=== PATIENT | female | born 1940 | race Caucasian/White ===

== ENCOUNTER → 2019-03-24 13:13 | Outpatient (CLI) | payer BC, SELFPAY ==
--- NOTE | 2019-03-24 13:15 | DI.MG.S_ITS ---
BILATERAL DIGITAL SCREENING MAMMOGRAM 3D/2D WITH CAD: 03/24/2019 CLINICAL: Routine screening. Personal history of left breast cancer. Comparison is made to exams dated: 03/11/2018 mammogram, 04/17/2017 specimen, 03/01/2017 mammogram, and 02/24/2016 mammogram - [facility]. The tissue of both breasts is heterogeneously dense. This may lower the sensitivity of mammography. Current study was also evaluated with a Computer Aided Detection (CAD) system. There are a grouped coarse calcifications in the left breast at 5 o'clock anterior depth. These are more prominent and increased in number. No other significant masses, calcifications, or other findings are seen in either breast. IMPRESSION: INCOMPLETE: NEEDS ADDITIONAL IMAGING EVALUATION The grouped coarse calcifications in the left breast are indeterminate. Mediolateral and spot magnification views are recommended. This exam was interpreted at Station ID: [id number]. NOTE: For mammograms, a report in lay terms will be sent to the patient. Approximately 15% of breast malignancies will not be visualized mammographically. In the management of a palpable breast mass, a negative mammogram must not discourage biopsy of a clinically suspicious lesion. Electronically Signed By: Pranav Mina M.D. aty/:03/24/2019 14:05:25 letter sent: Additional Imaging Needed ACR BI-RADS Category 0: Incomplete 3340F
== END ==
PROVIDERS: PCP Student in an Organized Health Care Education/Training Program; Visit Provider Student in an Organized Health Care Education/Training Program
DX: Z12.31 Encounter for screening mammogram for malignant neoplasm of breast (principal); Z85.3 Personal history of malignant neoplasm of breast
CPT/HCPCS: 77063; 77067

== ENCOUNTER → 2019-04-08 12:59 | Outpatient (CLI) | payer BC, SELFPAY ==
--- NOTE | 2019-04-08 | DI.MG.S_ITS ---
UNILATERAL LEFT DIGITAL DIAGNOSTIC MAMMOGRAM 3D/2D WITH ADDITIONAL VIEWS POST LUMPECTOMY: 04/08/2019 CLINICAL: Additional evaluation requested from prior study. Personal history of breast cancer. Comparison is made to exams dated: 03/24/2019 mammogram, 03/11/2018 mammogram, and 03/01/2017 mammogram - [facility]. The tissue of left breast is heterogeneously dense. This may lower the sensitivity of mammography. There are a grouped fine pleomorphic calcifications in the left breast at 3 o'clock middle depth. No other significant masses or calcifications are seen in the breast. IMPRESSION: SUSPICIOUS OF MALIGNANCY The grouped fine pleomorphic calcifications in the left breast are at a moderate suspicion for malignancy. A stereotactic biopsy is recommended. This exam was interpreted at Station ID: [id number]. NOTE: For mammograms, a report in lay terms will be sent to the patient. Approximately 15% of breast malignancies will not be visualized mammographically. In the management of a palpable breast mass, a negative mammogram must not discourage biopsy of a clinically suspicious lesion. Electronically Signed By: Dony rios/:04/08/2019 14:13:04 letter sent: Biopsy Required ACR BI-RADS Category 4c: Suspicious abnormality - moderate concern but not classic for malignancy 3344F
== END ==
PROVIDERS: PCP Student in an Organized Health Care Education/Training Program; Visit Provider Student in an Organized Health Care Education/Training Program
DX: R92.1 Mammographic calcification found on diagnostic imaging of breast (principal); Z85.3 Personal history of malignant neoplasm of breast
CPT/HCPCS: 77065; G0279

== ENCOUNTER → 2019-05-12 13:07 | Outpatient (CLI) | payer BC, SELFPAY | PROVIDERS: PCP Student in an Organized Health Care Education/Training Program; Visit Provider Student in an Organized Health Care Education/Training Program | DX: M85.88 Other specified disorders of bone density and structure, other site (principal); Z78.0 Asymptomatic menopausal state; E05.00 Thyrotoxicosis with diffuse goiter without thyrotoxic crisis or storm; Z85.3 Personal history of malignant neoplasm of breast; Z82.62 Family history of osteoporosis | CPT/HCPCS: 77080 ==

== ENCOUNTER → 2019-05-22 11:28 | Outpatient (CLI) | payer BC, SELFPAY ==
[2019-05-24 18:02] LABS: Fecal Immunochemical Test NOT DETECTED (NOT DETECTED)
== END ==
PROVIDERS: PCP Student in an Organized Health Care Education/Training Program; Visit Provider Student in an Organized Health Care Education/Training Program
DX: Z12.11 Encounter for screening for malignant neoplasm of colon (principal)
CPT/HCPCS: 82274

== ENCOUNTER → 2020-04-30 14:00 | Outpatient (CLI) | payer BC, SELFPAY ==
--- NOTE | 2020-04-30 | DI.MG.S_ITS ---
BILATERAL DIGITAL SCREENING MAMMOGRAM 3D/2D WITH CAD POST LUMPECTOMY: 04/30/2020 CLINICAL: Routine screening. Breast cancer. Comparison is made to exams dated: 04/08/2019 mammogram, 03/24/2019 mammogram, 03/11/2018 mammogram, and 03/01/2017 mammogram - [facility]. The tissue of both breasts is heterogeneously dense. This may lower the sensitivity of mammography. Current study was also evaluated with a Computer Aided Detection (CAD) system. There are benign vascular calcifications in both breasts. There also are benign post operative findings in the left breast. No significant masses, calcifications, or other findings are seen in either breast. There has been no significant interval change. IMPRESSION: There is no mammographic evidence of malignancy. A 1 year screening mammogram is recommended. This exam was interpreted at Station ID: [id number]. NOTE: For mammograms, a report in lay terms will be sent to the patient. Approximately 15% of breast malignancies will not be visualized mammographically. In the management of a palpable breast mass, a negative mammogram must not discourage biopsy of a clinically suspicious lesion. Electronically Signed By: Debo higgins/sneha:04/30/2020 14:55:50 letter sent: Normal Exam ACR BI-RADS Category 2: Benign Finding(s) 3342F
== END ==
PROVIDERS: PCP Student in an Organized Health Care Education/Training Program; Referring Provider Student in an Organized Health Care Education/Training Program; Visit Provider Student in an Organized Health Care Education/Training Program
DX: Z12.31 Encounter for screening mammogram for malignant neoplasm of breast (principal); Z85.3 Personal history of malignant neoplasm of breast
CPT/HCPCS: 77063; 77067

== ENCOUNTER → 2021-05-16 14:09 | Outpatient (CLI) | payer BC, SELFPAY ==
--- NOTE | 2021-05-16 | DI.MG.S_ITS ---
BILATERAL DIGITAL SCREENING MAMMOGRAM 3D/2D WITH CAD: 05/16/2021 CLINICAL: Routine screening. Breast cancer. Comparison is made to exams dated: 04/30/2020 mammogram, 04/08/2019 mammogram, 03/24/2019 mammogram, and 03/11/2018 mammogram - [facility]. The tissue of both breasts is heterogeneously dense. This may lower the sensitivity of mammography. Current study was also evaluated with a Computer Aided Detection (CAD) system. There are benign calcifications in both breasts. There also are benign vascular calcifications in both breasts. Additionally, there are benign post operative findings in the left breast. No significant masses, calcifications, or other findings are seen in either breast. There has been no significant interval change. IMPRESSION: BENIGN There is no mammographic evidence of malignancy. A 1 year screening mammogram is recommended. This exam was interpreted at Station ID: [id number]. NOTE: For mammograms, a report in lay terms will be sent to the patient. Approximately 15% of breast malignancies will not be visualized mammographically. In the management of a palpable breast mass, a negative mammogram must not discourage biopsy of a clinically suspicious lesion. Electronically Signed By: Dony rios/sneha:05/16/2021 14:46:03 letter sent: Normal Exam ACR BI-RADS Category 2: Benign Finding(s) 3342F
== END ==
PROVIDERS: PCP Student in an Organized Health Care Education/Training Program; Referring Provider Student in an Organized Health Care Education/Training Program; Visit Provider Student in an Organized Health Care Education/Training Program
DX: Z12.31 Encounter for screening mammogram for malignant neoplasm of breast (principal); Z85.3 Personal history of malignant neoplasm of breast
CPT/HCPCS: 77063; 77067

== ENCOUNTER → 2021-07-07 11:42 | Outpatient (CLI) | payer BC, SELFPAY ==
[2021-07-07 12:38] LABS: Add Manual Diff / Slide Review NO; Basophils Absolute Auto 100 /uL (0-100); Eosinophils Absolute Auto 100 /uL (0-450); Eosinophils Percent Auto 1.2 % (2-4); Hematocrit 42.4 % (36-46); Hemoglobin 14.1 g/dL (12.0-16.0); Lymphocytes Absolute Auto 1500 /uL (1100-4500); Lymphocytes Percent Auto 28.5 % (25-40); Mean Corpuscular HGB Conc 33.3 % (30-36); Mean Corpuscular Hemoglobin 31.4 PG (26-34); Mean Corpuscular Volume 94.1 fL (80-100); Monocytes Absolute Auto 500 /uL (0-900); Monocytes Percent Auto 9.5 % (3-14); Neutrophils Absolute Auto 3200 /uL (1500-7000); Neutrophils Percent Auto 59.8 % (50-75); Platelet Count 177 X10^3/uL (150-400); Red Blood Cell Count 4.51 X10^6/uL (4.0-5.2); Red Cell Distribution Width 13.8 % (11.6-14.8); White Blood Cell Count 5.4 X10^3/uL (4.5-11.0)
[2021-07-07 12:41] LABS: Hemoglobin A1C% w Est Avg Glu 5.6 % (4.0-6.0)
[2021-07-07 12:49] LABS: BUN Creatinine Ratio 31.1 (6-22); Blood Urea Nitrogen 19 mg/dL (7-17); Calcium 9.5 mg/dL (8.4-10.2); Carbon Dioxide 26 mmol/L (22-32); Chloride 105 mmol/L (98-107); Estimated Glomerular Filt Rate > 60.0 mL/min (>60); Glucose 96 mg/dL (80-110); HEMOLYSIS < 15 (0-50); Potassium 4.1 mmol/L (3.4-5.1); Sodium 137 mmol/L (137-145)
[2021-07-07 13:40] LABS: Thyroid Stimulating Hormone 1.14 uIU/mL (0.47-4.68)
== END ==
PROVIDERS: PCP Student in an Organized Health Care Education/Training Program; Referring Provider Orthopaedic Surgery; Visit Provider Orthopaedic Surgery
DX: E03.9 Hypothyroidism, unspecified (principal); Z01.818 Encounter for other preprocedural examination; M25.562 Pain in left knee; R73.9 Hyperglycemia, unspecified; Z01.812 Encounter for preprocedural laboratory examination
CPT/HCPCS: 36415; 80048; 83036; 84439; 84443; 85025; 93005

== ENCOUNTER → 2021-07-23 11:55 | Outpatient (CLI) | payer BC, SELFPAY ==
[2021-07-23 12:26] LABS: COVID19 -Nasal RAPID Negative (Negative)
== END ==
PROVIDERS: PCP Student in an Organized Health Care Education/Training Program; Visit Provider Nurse Practitioner Family
DX: Z20.822 Contact with and (suspected) exposure to COVID-19 (principal)
CPT/HCPCS: 87635

== ENCOUNTER 2021-07-25 10:44 | Observation (INO) | payer BC, SELFPAY ==
[2021-07-18 13:55] VITALS: BMI 25.4
[2021-07-25] VITALS (10 sets, daily range): BP systolic 113–142; BP diastolic 40–75; PULSE 58–77; RESP 12–16; TEMP 35.6–36.9; O2SAT 92–98; BMI 25.4
[2021-07-25] MEDS: ACETAMINOPHEN 325 MG TABLET 975 MG PO (11:28)
[2021-07-25] MEDS: CELECOXIB 200 MG CAPSULE PO (11:30)
[2021-07-25] MEDS: PREGABALIN 75 MG CAPSULE PO (11:31)
[2021-07-25] MEDS: LACTATED RINGERS 1,000 ML 42 ML IV ×2 (11:43→14:45)
--- NOTE | 2021-07-25 12:15 | DI.RAD.S_ITS ---
PROCEDURE: XR KNEE RT 1TO2V INDICATIONS: RT TOTAL KNEE TECHNIQUE: 2 view(s) of the knee acquired. COMPARISON: [facility], [place], XR KNEE ARTHRITIC SERIES , 04/07/2021, 13:48. FINDINGS: Bones: Patient is status post knee joint arthroplasty. Hardware components are in expected positions. Visualized bony structures are intact. Soft tissues: Overlying postoperative changes are noted. IMPRESSION: Expected immediate postoperative appearance of right TKA. Dictated by: Guero Brooks Lucio Interpreted: Caryl Jin MD on 07/25/2021 at 15:52 Transcribed by: [email or web address] on 07/25/2021 at 15:53 Approved by: Caryl Jin M.D. on 07/25/2021 at 16:02
--- NOTE | 2021-07-25 12:35 | PM.PREOP ---
Pre-operative Note COVID-19 COVID-19 status: Negative Result date/Date tested (Pos, Neg/Pending): 07/23/21 Interval Note History & Physical reviewed/Exam performed by Physician: Yes Changes to H&P: No
[2021-07-25] MEDS: BUPIVACAINE 0.25% (PF) VIAL 30 ML INJ (14:10)
[2021-07-25] MEDS: EPINEPHrine 1 MG/ML 0.15 MG INJ (14:12)
[2021-07-25] MEDS: MORPHINE 4 MG/ML INJ INJ (14:13)
[2021-07-25] MEDS: BUPIVACAINE LIPOSOME 266 MG/20 ML VIAL INJ (14:14)
[2021-07-25] MEDS: TRANEXAMIC ACID 1,000 MG VIAL 1000 MG INJ ×2 (14:14→14:48)
--- NOTE | 2021-07-25 14:20 | SUR.OPER ---
Supine on padded OR bed. Pillow under head, arms secured on padded armboards <90 degree abduction. Safety belt across torso. Non-operative leg secured with tape over blanket over lower leg. Operative leg secured in DeMayo/Daniel/Nathe positioner. Foam padded brace at thigh of operative leg.
--- NOTE | 2021-07-25 15:14 | PM.OP.1 ---
Operative Date/Time/Diagnoses Date of procedure: 07/25/21 Time of procedure: 15:14 Pre-op diagnosis: Right knee osteoarthritis Post-op diagnosis: same Procedure & Clinicians Procedure: Right total knee replacement Same procedure as scheduled: Yes Indications: The patient has had progressively worsening right knee pain with radiographic changes consistent with arthritis. Non-operative management has failed and the patient has requested total knee replacement. The risks, benefits and alternatives to surgery were discussed with the patient prior to proceeding. Risks discussed included, but were not limited to, failure to relieve pain, stiffness, infection, nerve damage, deep venous thrombosis, pulmonary embolism, stroke, coma, heart attack, permanent paralysis and , as well as the potential need for eventual revision of the prosthetic. Surgeon: Yuval Abdalla [employer] Hemmer: Dale Mcgraw Click Yes if Unassisted: No Anesthesia Type: General and Local Operative Notes Findings: Severe medial and patellofemoral osteoarthritis Closure Type: primary Specimen(s): none sent Prosthetic devices, grafts, tissues, transplants, or devices: Implants used in this procedure were manufactured by the [employer] and [employer] and included the BCS II Journey total knee replacement with a size 5 right cobalt chromium femoral component, a size 3 right non porous tibial base plate, 9 mm cross-linked polyethylene insert and a size 32 oval Paula II patella. Applied: implant(s) Estimated Blood Loss (mL): 25 Blood products transfused: none Tourniquet time (min): 52 Procedure in detail: The patient was seen in the pre-operative area, where the patient identified the right knee as the operative site and this was marked with my initials. The patient received pre-operative antibiotics, and was taken to the operating room and placed on the operative table in the supine position. After satisfactory anesthesia, a signal timer out was performed. The right leg was encircled with a tourniquet about the proximal thigh, and the leg was prepared from the toes to the tourniquet with ChloroPrep in the usual fashion and draped through sterile drapes. The leg was elevated and exsanguinated with Eschmark bandage and the tourniquet inflated to 250 mmHg pressure. The knee was approached through an approximately 16 cm incision centered over the patella and carried into the knee through a medial parapatellar arthrotomy. The anterior osteophytes and soft tissues were removed. The rotational landmarks of Haskell's line and the transepicondylar axis were marked on the femur with electrocautery, and intramedullary guide holes for the femur and tibia were created. The distal femoral cut was made in 6 degrees of valgus using the intramedullary guide at the +1 mm setting due to a pre-existing flexion contracture. The proximal tibial cut was then made using the intramedullary guide, taking 9 mm of bone off the less involved side. The extension gap was checked and the rotation of the femoral component confirmed with the gap balancing system. The anterior, posterior and chamfer cuts were then made. The posterior osteophytes and soft tissues were then removed. The posterior capsule was injected with part of a mixture of 60 ml 0.25% Marcaine mixed with 20 ml Exparel and 4 mg of morphine for post-operative pain control. The remainder of this mixture was injected into the capsule and subcutaneous tissues during cement curing. The tibia was prepared with the rotation set by an extra medullary guide. Trial tibial and femoral components were then placed and the intercondylar notch cut through the femoral trial. Range of motion was 0-140 degrees, with good stability throughout the range. The patella was then cut to accommodate the patellar prosthetic. There was no need for a lateral release. The trials were then removed, and the femoral hole plugged with a bone plug. The bone was prepared with pulsatile lavage, and dried with a sponge. Cement was applied and the final prosthetics placed. Excess cement was removed during and after cement curing. After confirming there was no extruded cement posteriorly, the final tibial insert was placed. The knee was copiously irrigated and the tourniquet deflated. Hemostasis was obtained. The capsule was closed with interrupted # 2 polyester suture. The subcutaneous layer was closed with 3-0 Vicryl, and the skin with a running 3-0 V-Lock suture and Dermabond. An Aquacel Ag dressing was applied and the patient was taken to recovery having tolerated the procedure well. Complications: none Post-operative Condition: stable Disposition: PACU Plan for aftercare: The patient will be maintained on a standard total knee replacement protocol with weight bearing as tolerated. The patient will receive aspirin and sequential compression devices for DVT prophylaxis. The patient will be discharged home when safe for the home environment.
[2021-07-25] MEDS: OXYCODONE/ACETAMINOPHEN 5/325 TABLET 1 TAB PO (15:50)
[2021-07-25] MEDS: METOCLOPRAMIDE 10 MG/2 ML INJ IV (16:42)
[2021-07-25] MEDS: LACTATED RINGERS 1,000 ML 100 ML IV (16:42)
[2021-07-25] MEDS: ONDANSETRON 4 MG/2 ML INJ IV (20:41)
[2021-07-26] VITALS (8 sets, daily range): BP systolic 118–142; BP diastolic 48–60; PULSE 60–68; RESP 16–18; TEMP 36.1–37; O2SAT 92–98
[2021-07-26] MEDS: LACTATED RINGERS 1,000 ML 100 ML IV (02:22)
[2021-07-26] MEDS: LEVOTHYROXINE 88 MCG TABLET PO (06:10)
[2021-07-26 06:18] LABS: Hematocrit 38.2 % (36-46); Hemoglobin 12.5 g/dL (12.0-16.0)
[2021-07-26] MEDS: ACETAMINOPHEN 325 MG TABLET 650 MG PO ×3 (06:31→20:56)
--- NOTE | 2021-07-26 07:52 | P.DS_ITS ---
History of Present Illness History of Present Illness Date Patient Seen: 07/26/21 Time Patient Seen: 07:52 Chief complaint: OPB Narrative: The history and physical is contained in the chart previously completed note. Please refer to that note for this information. Discharge Providers Provider Date of admission: July 25, 2021 Discharge Date: 07/26/21 Primary care physician: Bebeto Neal MD Consults: 07/25/21 16:02 Consult to Discharge Planning Routine Comment: Consult to Physical Therapy Evaluate & Treat Comment: Physician Instructions: postop TKA protocol Discharge provider: Yuval Abdalla MD Summary Hospital Course Discharge Diagnosis: Osteoarthritis of the right knee Hospital Course: Patient was admitted to the hospital and taken directly to the operating room on July 25, 2021. She underwent a right total knee replacement without complications. On postoperative day 1 her pain control was satisfactory. She had not yet ambulated with physical therapy. Status at Discharge Cognitive/behavioral status at discharge: at baseline, oriented Functional status at discharge: uses cane/walker Overall status at discharge: patient is progressing back to baseline Time Spent with Patient Time spent: Less than 30 minutes Exam Vital Signs (past 8 hours): - 07/26/21 00:24 07/26/21 03:31 07/26/21 07:05 Temperature 96.9 F L 98.6 F Pulse Rate 60 62 Respiratory Rate 16 16 Blood Pressure 130/52 L 118/60 Pulse Oximetry 98 98 98 Oxygen Delivery Method Nasal Cannula Oxygen Flow Rate 2 Narrative Exam Narrative: Right knee wound is dressed with no drainage on the bandage. Calf is soft. Light touch and motion are intact in the right lower extremity. Objective Labs Result Diagrams: 07/26/21 06:01 Labs: Laboratory Results - last 24 hr 07/26/21 06:01 Hgb 12.5 Hct 38.2 [facility] Medical History (Updated 07/18/21 @ 14:22 by Alison Thakur RN) Breast cancer, left (2017) Chicken pox (~1946) Deviated septum Graves disease (~1985) Hx of thyroid irradiation Measles (~1946) Nephritis Osteoarthritis (~1998) Osteopenia Recurrent sinusitis (~1989) Seasonal allergies (~1989) Tinnitus (~2009) Vertigo (~1966) Surgical History (Updated 07/18/21 @ 14:20 by Alison Thakur RN) Anesthesia Cataracts, bilateral History of lumpectomy of left breast (2016) Status post appendectomy (~2012) Status post vaginal hysterectomy (11/29/15) Family History (Updated 04/15/19 @ 21:52 by Nina Aguilera) Father Heart disease Mother Hypertension Grandmother Hypertension Stroke Grandfather Cancer Social History household members: spouse Smoking Status: Never smoker alcohol intake: current Discharge Assessment & Plan Assessment and Plan Assessment: Stable postoperative day 1 status post right total knee replacement. We anticipate she will be able to go home with the care of her and daughter to live on 1 story of her two-story home after physical therapy this morning. If therapy does not go well they will contact me and we will admit her as an inpatient. Plan of Treatment: Discharge today if passes physical therapy. Follow-up will be at my office in 2 weeks. A prescription has been sent into the pharmacy for oxycodone for pain relief. She has also been instructed in the use of Tylenol for pain control and the use of low-dose aspirin for DVT prophylaxis. Discharge Plan Discharge Plan Patient Disposition: Home Discharge orders & Medications Discharge Orders: Discharge (Order); Ordered 07/26/21 Ordered By: Yuval Abdalla Prescriptions: New acetaminophen 325 mg Tablet 650 mg PO TID 30 Days Qty: 180 RF: 0 aspirin 81 mg Tablet,Delayed Release (Dr/Ec) 81 mg PO BID 42 Days Qty: 84 RF: 0 oxycodone 5 mg Tablet 5 mg PO Q4H PRN (Reason: Pain, Moderate (4-6)) Qty: 40 RF: 0 Continued ascorbic acid (vitamin C) 500 MG tablet 500 mg PO QDAY Qty: 0 RF: 0 cholecalciferol (vitamin D3) [Vitamin D3] 50 mcg (2,000 unit) Capsule 50 mcg PO DAILY Qty: 0 RF: 0 beta carotene 25,000 unit Capsule 25,000 unit PO DAILY Qty: 0 RF: 0 calcium carbonate-vitamin D3 500 mg(1,250mg) -125 unit Tablet 2 tab PO QPM Qty: 0 RF: 0 turmeric root extract 500 mg Capsule 1,000 mg PO BID Qty: 0 RF: 0 levothyroxine [Synthroid] 88 mcg tablet 88 mcg PO DAILY Qty: 90 RF: 0 vitamin K2 100 mcg Capsule 200 mcg PO DAILY RF: 0 krill oil 500 mg Capsule 500 mg PO DAILY RF: 0 Follow up/Referrals: Bebeto Neal MD [Primary Care Provider] - Yuval Abdalla MD [Physician] - 2 Weeks Diet/Activity/Treatments Diet: Diet as Tolerated and Regular Activity: You may bear weight as tolerated on your right leg. Cold/Heat Therapy: Apply ice for 15 minutes every hour as needed to the right knee for pain control. Skin/Wound/Dressing Care Report to your healthcare provider any signs of infection, such as:: chills, fever, night sweats, increased pain, unusual drainage and unusual redness Dressing: You may remove the Billy wrap 3 days after surgery and shower normally with the deeper dressing in place. Leave the deeper dressing in place until follow-up in my office. If the central strip of the deeper dressing becomes saturated with either water or blood, please call the office to have it evaluated. Visit Report/Discharge Packet Instructions: DI for Knee Replacement Stand Alone Forms: Surgery Discharge Discharge Data Primary Care Provider: Bebeto Neal Attending Provider: Yuval Abdalla Quality VTE Deep Vein Thrombosis/Pulmonary Embolism Present on Admission: No
[2021-07-26] MEDS: ASPIRIN EC 81 MG TABLET PO ×2 (08:31→20:56)
[2021-07-26] MEDS: DOCUSATE 100 MG CAPSULE PO ×2 (08:31→20:56)
[2021-07-26] MEDS: ASCORBIC ACID 500 MG TABLET PO (08:31)
[2021-07-26] MEDS: OXYCODONE IR 10 MG TABLET PO (08:31)
[2021-07-26] MEDS: ONDANSETRON 4 MG/2 ML INJ IV ×2 (08:31→18:01)
[2021-07-26] MEDS: CHOLECALCIFEROL (VITAMIN D3) 1,000 UNIT TABLET 2000 UNIT PO (08:31)
--- NOTE | 2021-07-26 09:20 | PT.IIE ---
Current Diagnoses Unilateral primary osteoarthritis, right knee (07/25/21) Surgery Performed Operation Date: 07/25/21 12:15 Actual Procedures p Total Knee Arthroplasty(Right) - Yuval Abdalla MD Surgical History (Last Updated 07/18/21 @ 14:20 by Alison Thakur, RN) Anesthesia Cataracts, bilateral Status post appendectomy (~2012) Status post vaginal hysterectomy (11/29/15) Medical History (Last Updated 07/18/21 @ 14:22 by Alison Thakur RN) Breast cancer, left (2016) Chicken pox (~1945) Deviated septum Graves disease (~1985) Hx of thyroid irradiation Measles (~1946) Nephritis Osteoarthritis (~1998) Osteopenia Recurrent sinusitis (~1989) Seasonal allergies (~1989) Tinnitus (~2009) Vertigo (~1966) Physical Therapy Inpatient Evaluation/Re-Eval M1 PT/OT-IP Prior Functional Status Start: 07/26/21 11:50 Freq: NEEDED Status: Active Protocol: Document 07/26/21 09:20 AB (Rec: 07/26/21 12:[email or web address] Medical Review Prior Functional Status Medical History Reviewed Yes Communication able to make needs known Mobility and Gait pt stated that she is independent with all mobilities and ambulation without AD Social History Household Members spouse Living Arrangements House Number of Floors (Floors) Two Floors Number of Stairs To Enter/Railing? pt stays on main level of the house 1 step to enter Home Environment High Toilet,Walk in Shower Home Equipment Front Wheel Walker,Quad Cane, Straight Cane,Hand Held Shower Employment Status Retired M2 PT-IP Current Condition Start: 07/26/21 11:50 Freq: NEEDED Status: Active Protocol: Document 07/26/21 09:20 AB (Rec: 07/26/21 12:05 AB [email or web address]) Physical Therapy Current Condition Current Condition Evaluation Date 07/26/21 Treatment Diagnosis s/p R TKA; difficulty in walking Onset Date 07/25/21 Weight Bearing Status Weight Bearing Status Weight Bear as Tolerated Allowed Weight Bearing Amount (enter % RLE WBAT or #) (%) M3 PT-IP Subjective Start: 07/26/21 11:50 Freq: NEEDED Status: Active Protocol: Document 07/26/21 09:20 AB (Rec: 07/26/21 12:05 AB [email or web address]) Subjective Physical Therapy Visit Type Type Initial Evaluation Visit Start Time 09:20 Visit Stop Time 10:11 Total Visit Minutes 51 Number of HEAT TREAT FURNACE OPERATOR Visits 0 Physical Therapy Visit Comments Patient Comments agreeable to do PT; c/o nausea Therapy Pain Assessment Pain When Pain Assessed At Rest Pain Present Pain Present Pain Reported Location Right Knee Intensity 5 Scale Used Numeric (0 - 10) Pain Management Techniques Apply Cold,Distraction, Modification of Treatment,Re- positioning,Timing of Activity with Medications M4 PT-IP Mobility and Gait Start: 07/26/21 11:50 Freq: NEEDED Status: Active Protocol: Document 07/26/21 09:20 AB (Rec: 07/26/21 12:05 [id number]) PT-Bed Mobility Assessment Supine to Sit Supine to Sit Standby Assistance PT-Transfer Assessment Sit to and From Stand Sit to and from Stand Moderate Assistance,1 Person Assistance,Use of Upper Extremities Equipment Transfer Assistive Device Gait Belt,Front Wheeled Walker Orthotic/Prosthetic Devices or Brace: No Transfers Transfer Destination Chair,Bedside Commode Transfer Technique Stand Step Pivot Transfer Ability Level of Assist Moderate Assistance,1 Person Assistance,Use of Upper Extremities Comments Mobility Comments spouse in room with pt. pt requesting to use the toilet. BP: 133/55 . pt completed supine to sit SBA. able to sit on EOB SBA. c/o nausea. BP in sittin/52. completed sit to stand mod A and mod cues and completed step transfer to bedside commode using FWW mod A and cues. pt continues to c/o nausea. (+) emesis. nurse in room. pt completed sit to stand from bedside commode mod A and cues and min A for standing balance using fWW while nurse assisted with hygiene care. pt was able to pull brief up min A. pt able to take steps using FWW to the chair min to mod A and cues. Caregiver training initiated. educated spouse on how to use safety belt and how to assist pt. spouse was able to put safety belt on. assisted pt with sit to stand and ambulated in room using FWW min to mod A and cues. pt agreed to sit up on chair but refused further activity due to c/o nausea. positioned pt on chair. call light and table placed within reach. caregiver training set up for this afternoon at 1pm. Gait Assessment Gait Gait Assistance Required: Minimum Assistance,Moderate Assistance,1 Person Assist Distance (Feet) 25 Able to Maintain Weight Bearing Status Yes During Gait Assistive Devices Assistive Device Gait Belt,Front Wheeled Walker Orthotic/Prosthetic Devices or Brace: No Gait Deviations General Gait Pattern Antalgic,Decreased Stride Length,Decreased Feet Clearance,Step-to Gait Factors Limiting Gait Function Factors Limiting Gait Function Decreased Activity Tolerance, Decreased Strength,Difficulty Following Directions,Limited Range of Motion,Pain,Poor Balance,Poor Safety Awareness PT-Balance Assessment Sitting Balance and Reactions Static Sitting Balance Ability Good Dynamic Sitting Balance Ability Good Standing Balance and Reactions Static Standing Balance Ability Fair Dynamic Standing Balance Ability Fair Device Used FWW M5 PT-IP Objective Assessments Start: 07/26/21 11:50 Freq: NEEDED Status: Active Protocol: Document 07/26/21 09:20 AB (Rec: 07/26/21 12:05 [email or web address]) Orientation Orientation/Cognition Level of Alertness Alert Orientation Name,Place,Situation Language Function Ability No Deficits Noted Safety Awareness Decreased Safety Awareness Memory Description No Deficits Noted Gross Range of Motion Lower Extremity ROM Impairments R knee flexion: ~ 70 deg PROM R knee extension: ~ 25 deg less to 0 Strength Lower Extremity Strength Assessment Right Impaired Hip 3+/5 Knee 3+/5 Sensation Assessment Sensation Gross Sensation WNL Muscle Tone Muscle Tone WNL Yes M6 PT-IP Treatment Start: 07/26/21 11:50 Freq: NEEDED Status: Active Protocol: Document 07/26/21 09:20 AB (Rec: 07/26/21 12:05 [email or web address]) Physical Therapy Treatment Education Education Provided Precautions,Weight Bearing Status,Post-Op Packet,Safety M7 PT-IP Assessment and Plan Start: 07/26/21 11:50 Freq: NEEDED Status: Active Protocol: Document 07/26/21 09:20 AB (Rec: 07/26/21 12:05 [email or web address]) PT Summary Assessment and Plan Potential Rehabilitation Potential Good Status of Condition at Evaluation Evolving Summary Impairments Pain,ROM,Strength,Balance, Coordination,Sensation,Tone, Cognition,Bed Mobility, Transfers,Gait,Activity Tolerance Assessment Summary caregiver training conducted but further training is needed . pt unable to tolerate much activity this morning due to c /o nausea with (+) emesis. will continue to assess progress. pt plans to go home and spouse to assist her. Goals Bed Mobility Goal Independent Transfer Goal Independent,Front Wheeled Walker Gait Goal Independent,Front Wheel Walker Gait Distance 150 Other Goals up/down 1 step using FWW SBA Days to Meet Goals 5 Frequency of Treatment Frequency Of Treatment Twice a Day Treatment Plan Physical Therapy Treatment Plan Bed Mobility Training,Transfer Training,Gait Training, Therapeutic Exercise,Balance Retraining,Post Op Education, Discharge Planning,Hot or Cold Pack,Neuromuscular Re-ed, Coordination Retraining,Manual Therapy Other Recommendations and Next Treatment caregiver training 07/26/21 at [facility] 1 pm Precautions Other Precautions RLE WBAT Recommendations To Nursing Amount of Assist Needed 1 Person Assist Discharge Recommendations PT Discharge Recommendations Home with Assistance, Outpatient PT Transportation Needs at Discharge Private Vehicle
--- NOTE | 2021-07-26 10:13 | PC.NURSE ---
Pt up with PT for the first time. Pt c/o nausea. Had medicated with Zofran around breakfast time. Pt with emesis 400 ml. C/O dizziness. BP stable. No hypotension when assessed. May be due to pain meds. Will continue to monitor. Pt not discharging this morning. Still needs to do a step with PT and also needs to demonstrate that she can keep her food down without vomiting.
--- NOTE | 2021-07-26 11:40 | PC.NURSE ---
Dr Abdalla saw patient this morning. She worked with PT. Pending PT clearance for discharge. Also, pt has had nausea/vomiting and unable to keep her breakfast down despite medicating her with Zofran prior to breakfast.
[2021-07-26] MEDS: METOCLOPRAMIDE 10 MG/2 ML INJ IV (12:04)
--- NOTE | 2021-07-26 13:00 | PT.IPTN ---
Current Diagnoses Unilateral primary osteoarthritis, right knee (07/25/21) Surgery Performed Operation Date: 07/25/21 12:15 Actual Procedures p Total Knee Arthroplasty(Right) - Yuval Abdalla MD Physical Therapy Treatment Note M2 PT-IP Current Condition Start: 07/26/21 11:50 Freq: NEEDED Status: Active Protocol: Document 07/26/21 09:20 AB (Rec: 07/26/21 12:05 AB [email or web address]) Physical Therapy Current Condition Current Condition Evaluation Date 07/26/21 Treatment Diagnosis s/p R TKA; difficulty in walking Onset Date 07/25/21 Weight Bearing Status Weight Bearing Status Weight Bear as Tolerated Allowed Weight Bearing Amount (enter % RLE WBAT or #) (%) M3 PT-IP Subjective Start: 07/26/21 11:50 Freq: NEEDED Status: Active Protocol: Document 07/26/21 13:00 AB (Rec: 07/26/21 15:12 AB [email or web address]) Subjective Physical Therapy Visit Type Type Treatment Note Visit Start Time 13:00 Visit Stop Time 13:27 Total Visit Minutes 27 Number of GRADUATE INTERN Visits 0 Physical Therapy Visit Comments Patient Comments agreeable to do PT Therapy Pain Assessment Pain When Pain Assessed At Rest Pain Present Pain Present Pain Reported Location Right Knee Intensity 6 Scale Used Numeric (0 - 10) Pain Behaviors Guarding,Holding Area Pain Management Techniques Distraction,Modification of Treatment,Re-positioning, Timing of Activity with Medications M4 PT-IP Mobility and Gait Start: 07/26/21 11:50 Freq: NEEDED Status: Active Protocol: Document 07/26/21 13:00 AB (Rec: 07/26/21 15:12 AB [email or web address]) PT-Bed Mobility Assessment Sit to Supine Sit to Supine Standby Assistance PT-Transfer Assessment Sit to and From Stand Sit to and from Stand Contact Guard Assistance,1 Person Assistance,Use of Upper Extremities Equipment Transfer Assistive Device Gait Belt,Front Wheeled Walker Orthotic/Prosthetic Devices or Brace: No Transfers Transfer Destination Bed Transfer Technique Stand Step Pivot Transfer Ability Level of Assist Contact Guard Assistance, Minimal Assistance,1 Person Assistance,Use of Upper Extremities Comments Mobility Comments caregiver training conducted. spouse was able to put safety belt on and assisted pt with ambulation in room using FWW. educated pt and spouse regarding stair climbing. pt ambulated with spouse assisting using FWW CGA to min A to platform step. PT assisted pt on first attempt with up/down platform step using FWW and pt completed with min A and cues. spouse assisted pt on 2nd attempt and completed safely. pt ambulate to the room with spouse assisting and cueing. pt sat on chair. pt requested to go back to bed. spouse assisted pt with transfer to bed using FWW. pt completed sit to supine SBA. positioned pt on bed. call light and table placed within reach. Gait Assessment Gait Gait Assistance Required: Contact Guard Assist,Minimum Assistance Distance (Feet) 30 Able to Maintain Weight Bearing Status Yes During Gait Assistive Devices Assistive Device Gait Belt,Front Wheeled Walker Orthotic/Prosthetic Devices or Brace: No Gait Deviations General Gait Pattern Antalgic,Decreased Stride Length,Decreased Feet Clearance,Step-to Gait Factors Limiting Gait Function Factors Limiting Gait Function Decreased Activity Tolerance, Decreased Strength,Limited Range of Motion,Pain,Poor Balance,Poor Safety Awareness Stair Climbing Assessment Evaluation Level of Assist On Stairs Minimal Assistance,1 Person Assistance Devices Stair Climbing Assistive Devices Front Wheel Walker Technique/Endurance Stair Climbing Direction Ascend and Descend Stair Climbing Technique Step to Step Number of Steps Climbed 1 Stair Climbing Set # Repetitions (reps) 2 Comments Stair Climbing Comments pls refer to mobility section for details M5 PT-IP Objective Assessments Start: 07/26/21 11:50 Freq: NEEDED Status: Active Protocol: Document 07/26/21 09:20 AB (Rec: 07/26/21 12:05 AB [email or web address]) Orientation Orientation/Cognition Level of Alertness Alert Orientation Name,Place,Situation Language Function Ability No Deficits Noted Safety Awareness Decreased Safety Awareness Memory Description No Deficits Noted Gross Range of Motion Lower Extremity ROM Impairments R knee flexion: ~ 70 deg PROM R knee extension: ~ 25 deg less to 0 Strength Lower Extremity Strength Assessment Right Impaired Hip 3+/5 Knee 3+/5 Sensation Assessment Sensation Gross Sensation WNL Muscle Tone Muscle Tone WNL Yes M6 PT-IP Treatment Start: 07/26/21 11:50 Freq: NEEDED Status: Active Protocol: Document 07/26/21 13:00 AB (Rec: 07/26/21 15:12 AB [email or web address]) Physical Therapy Treatment Education Education Provided Safety M7 PT-IP Assessment and Plan Start: 07/26/21 11:50 Freq: NEEDED Status: Active Protocol: Document 07/26/21 13:00 AB (Rec: 07/26/21 15:12 [id number]) PT Summary Assessment and Plan Potential Rehabilitation Potential Good Summary Impairments Pain,ROM,Strength,Balance, Coordination,Sensation,Tone, Cognition,Bed Mobility, Transfers,Gait,Activity Tolerance Progress Towards Goals Slow Progress due to Pain Assessment Summary caregiver training conducted and spouse was able to assist pt safely with mobility. pt may go home when medically stable. Goals Bed Mobility Goal Independent Transfer Goal Independent,Front Wheeled Walker Gait Goal Independent,Front Wheel Walker Gait Distance 150 Other Goals up/down 1 step using FWW SBA Days to Meet Goals 5 Frequency of Treatment Frequency Of Treatment Twice a Day Treatment Plan Physical Therapy Treatment Plan Bed Mobility Training,Transfer Training,Gait Training, Therapeutic Exercise,Balance Retraining,Post Op Education, Discharge Planning,Hot or Cold Pack,Neuromuscular Re-ed, Coordination Retraining,Manual Therapy Precautions Other Precautions RLE WBAT Recommendations To Nursing Amount of Assist Needed 1 Person Assist Discharge Recommendations PT Discharge Recommendations Home with Assistance, Outpatient PT Transportation Needs at Discharge Private Vehicle
--- NOTE | 2021-07-26 13:15 | CM.DANOTE ---
DCP Assessment: Patient is an 80 yr old female that had Right TKA preformed by Dr. Abdalla. CM met with patient at the bedside and explained role. Patient was alert and Oriented at time of CM visit. patient currently lives with her and daughter in a two story home but she only uses the first floor. Patient was up with PT this morning and was nausea and had a few episodes of vomiting. Patient is Independent at base line but depends on others for transportation. I: [employer] and self pay Plan: plan is to work with PT in the morning on Steps and DC home with family when medically ready. NO identified DC planning needs noted at this time. CM department will follow to help assist with any DC planning needs as they arise. Jacklyn Thibodeaux RNpai gow manager Discharge Planning/Care Management CM Discharge Assessment Start: 07/26/21 13:07 Freq: Status: Active Protocol: Document 07/26/21 13:07 (Rec: 07/26/21 13:14 [id number]) Discharge Planning Assessment Assigned Icing Maker Jacklyn Thibodeaux CM/MARY DPOA/Assigned Designee Name Ricardo Sorensen () Contact Information [phone] Advance Directives? Yes Advance Directives on File No History Provided By Patient,Significant Other Has Patient been admitted in last 30 No days? Prior Living Arrangements House Household Members spouse Independent with ADL's Yes Is patient alert and oriented? Yes Caregiver for Another No Barriers to Discharge No Discharge Plan Home Whiteboard Updated in Patient Room with Yes name and ext. # of Icing Maker Review Status In Process Next Review Type Continued Stay Review Pre-Anesthesia Assessment Start: 07/18/21 13:55 Freq: Status: Complete Protocol: Document 07/18/21 13:55 CAB (Rec: 07/18/21 14:55 [facility] [id number]) Pre-Anesthesia Assessment Patient Information Reviewed Via Phone Assessment Assessment Completed With Patient Diagnostic Results BMP/CMP,CBC,EKG Comment Labs/EKG @ 07/07/21, COVID screen @ 07/23/21 Primary Care Provider Bebeto Neal Seen Specialist in Last 12 Months Yes Specialist Seen Orthopedist Primary Language Urdu Fish Tender Required No Height 154.94 cm Weight 61.235 kg Body Mass Index (BMI) 25.4 Hearing Ability Normal Visual Assist Glasses Dentition Type Teeth, Natural Present,Teeth, Missing Barriers to Learning None Hx Anesthesia Reactions No Hx Family Anesthesia Reaction Yes: Father and daughter take a long time to come out of anesthesia Hx Malignant Hyperthermia No Hx Blood Transfusions No Anesthesia Review Requested No alcohol intake current Alcohol Intake Frequency Other: Occasional Smoking Status Never smoker Substance Use Type does not use Pain Present Pain Reported Musculoskeletal Symptoms Abnormal Gait,Difficulty Walking,Joint Pain,Neck Pain History of Falling (Recent or History of Yes ) Patient is completely paralyzed or No completely immobile Mental Status Oriented to own ability Is patient on oxygen? No Does patient have TRAMMELL/SOB No Hx Sleep Apnea No Currently Taking a Beta Thien No Can You Climb a Flight of Stairs Without Yes SOB Hx Chest Pain No Hx SOB No Hx Syncope or Dizziness Yes: Vertigo Anti-Coagulant Therapy No Has a Fine Grade Bulldozer Operator No Cardiac Testing No Hx Pacemaker/ICD No Pacemaker Rep Required? No Diet Type At Home Regular dysphagia No Bladder Pattern Nocturia Urinary Catheter Present No Hx Urinary Self Catheterization No Diabetes No HgbA1C 5.6 Date 07/07/21 Patient No Lactating No Hx Drug Resistant Organism No Presence of External or Internal Medical Yes: Bilat eye IOL Devices Have you had any close contact with No someone diagnosed with COVID-19? Marital Status Lives With spouse Prior Living Arrangements House Number of Floors (Floors) Two Floors Support System Child/Children,Spouse Does the Patient Have Assistance After Yes Surgery Patient Discharge Plan Description Return Home Comment Pt not advised on length of stay per surgeon Feels Safe in Current Environment Yes Been Physically Hurt or Threatened By a No Person in Current Environment Do you have thoughts of harming yourself None or others? Are you currently considering suicide? No Do you have a plan to hurt yourself or No Plan others? Do You Have Any Spiritual Beliefs That No May Affect Your HC Choices? Do You Have Any Cultural Practices That No May Affect Your HC Choices? Comment Misha Who Can We Speak to About Patient's Care Family, friends Identifying Code for Release of Patient Declines to issue Information Health Care Proxy/Next of Kin Ricardo () Health Care Proxy Emergency Contact Name Ricardo ()Leticia ( daughter)[phone] Emergency Contact Phone Number Ricardo: [phone] Letiica: [phone] Advance Directives? Yes Advance Directives on File No Requested Patient Bring Advanced Yes Directives DOS Power of Application Support Technician Yes Power of Application Support Technician Name Ricardo Power of Application Support Technician PAC Instructions Do not shave/clip surgical site,Durable medical equipment ,Medications to take/avoid, Nasal antibiotic,No ETOH/ petroleum product on skin DOS, NPO,Post-op transportation, Sensory aids,Sturdy shoes/ comfortable clothes,Do not bring valuables and remove jewelry
--- NOTE | 2021-07-26 13:44 | PC.NURSE ---
Pt only ate ice cream at lunch. Continues to struggle with nausea. Able to keep down Percocet 1 tab that was given with her ice cream. Pt would like to see how she does for dinner. She's concerned that she may go home and continue to have problems tolerating PO intake. Dr Abdalla healthcare administrative assistant notified.
[2021-07-26] MEDS: CALCIUM CARB/VIT D3 500/200 TABLET 2 EACH PO (17:50)
[2021-07-26] MEDS: HYDROMORPHONE 2 MG TABLET PO ×2 (18:00→20:56)
--- NOTE | 2021-07-26 18:10 | PC.NURSE ---
PATIENT WAS ABLE TO EAT SOME OF HER DINNER, STILL HAVING NAUSEA DOES NOT KNOW IF IT WILL STAY DOWN,ZOFRAN IV GIVEN,PAIN TO R KNEE UP TO 7, PO DILAUDID GIVEN
[2021-07-26] MEDS: SODIUM CHLORIDE 0.9% FLUSH 10 ML IV (20:57)
[2021-07-27 00:53] VITALS: BP 154/76; PULSE 74; RESP 16; TEMP 36.7; O2SAT 92
[2021-07-27] MEDS: HYDROMORPHONE 2 MG TABLET PO ×3 (01:30→08:55)
[2021-07-27] MEDS: LEVOTHYROXINE 88 MCG TABLET PO (05:35)
[2021-07-27 05:59] VITALS: BP 142/64; PULSE 68; RESP 16; TEMP 36.7
[2021-07-27 07:30] VITALS: BP 151/79; PULSE 76; RESP 16; TEMP 36.3
[2021-07-27] MEDS: ONDANSETRON 4 MG ODT PO (07:58)
[2021-07-27] MEDS: CHOLECALCIFEROL (VITAMIN D3) 1,000 UNIT TABLET 2000 UNIT PO (08:54)
[2021-07-27] MEDS: ASCORBIC ACID 500 MG TABLET PO (08:54)
[2021-07-27] MEDS: ACETAMINOPHEN 325 MG TABLET 650 MG PO (08:55)
[2021-07-27] MEDS: DOCUSATE 100 MG CAPSULE PO (08:56)
[2021-07-27] MEDS: ASPIRIN EC 81 MG TABLET PO (08:56)
--- NOTE | 2021-07-27 10:23 | PT.IPTN ---
Current Diagnoses Unilateral primary osteoarthritis, right knee (07/25/21) Surgery Performed Operation Date: 07/25/21 12:15 Actual Procedures p Total Knee Arthroplasty(Right) - Yuval Abdalla MD Physical Therapy Treatment Note M2 PT-IP Current Condition Start: 07/26/21 11:50 Freq: NEEDED Status: Active Protocol: Document 07/26/21 09:20 AB (Rec: 07/26/21 12:05 AB [email or web address]) Physical Therapy Current Condition Current Condition Evaluation Date 07/26/21 Treatment Diagnosis s/p R TKA; difficulty in walking Onset Date 07/25/21 Weight Bearing Status Weight Bearing Status Weight Bear as Tolerated Allowed Weight Bearing Amount (enter % RLE WBAT or #) (%) M3 PT-IP Subjective Start: 07/26/21 11:50 Freq: NEEDED Status: Active Protocol: Document 07/27/21 10:23 AB (Rec: 07/27/21 12:22 AB [email or web address]) Subjective Physical Therapy Visit Type Type Treatment Note Visit Start Time 10:23 Visit Stop Time 11:05 Total Visit Minutes 42 Number of SPORTS MEDICINE SPECIALIST Visits 0 Physical Therapy Visit Comments Patient Comments NAC in room and was going to assist pt to use bedside commode; PT took over Therapy Pain Assessment Pain When Pain Assessed During Mobility Pain Present Pain Present Pain Reported Location Right Knee Intensity 8 Scale Used Numeric (0 - 10) Pain Management Techniques Apply Cold,Elevation, Modification of Treatment,Re- positioning,Timing of Activity with Medications M4 PT-IP Mobility and Gait Start: 07/26/21 11:50 Freq: NEEDED Status: Active Protocol: Document 07/27/21 10:23 AB (Rec: 07/27/21 12:22 AB [email or web address]) PT-Bed Mobility Assessment Sit to Supine Sit to Supine Moderate Assistance,1 Person Assistance PT-Transfer Assessment Sit to and From Stand Sit to and from Stand Minimal Assistance,Moderate Assistance,1 Person Assistance ,Use of Upper Extremities Equipment Transfer Assistive Device Gait Belt,Front Wheeled Walker Orthotic/Prosthetic Devices or Brace: No Transfers Transfer Destination Toilet Transfer Technique ambulated using FWW Transfer Ability Level of Assist Minimal Assistance,Use of Upper Extremities Comments Mobility Comments NAC was able to assist pt to use bedside commode. PT took over. encouraged pt to use the toilet. c/o increase R knee pain. completed sit to stand mod A and ambulated to the toilet using FWW min A and cues. completed sit to stand from the toilet using grab bar min to mod A and cues and ambulated using FWW towards the sink. pt was able to maintain standing balance SBA to CGA while doing grooming/ handwashing. pt ambulated to the chair using fWW SBA to CGA . pt agreed to do stairs. spouse assisted pt from chair and ambulation towards platform step. spouse also assisted pt with up/down platform step using FWW and pt ambulated back to the room and requested to go back to bed. spouse was able to assist pt safely. pt completed sit to supine mod A for RLE elevation. positioned pt on the bed. ice pack provided. call light and table placed within reach. Gait Assessment Gait Gait Assistance Required: Standby Assistance,Contact Guard Assist Distance (Feet) 30 Able to Maintain Weight Bearing Status Yes During Gait Assistive Devices Assistive Device Gait Belt,Front Wheeled Walker Orthotic/Prosthetic Devices or Brace: No Gait Deviations General Gait Pattern Antalgic,Decreased Stride Length,Decreased Feet Clearance,Step-to Gait Factors Limiting Gait Function Factors Limiting Gait Function Decreased Activity Tolerance, Decreased Strength,Difficulty Following Directions,Limited Range of Motion,Pain,Poor Balance,Poor Safety Awareness Stair Climbing Assessment Evaluation Level of Assist On Stairs Minimal Assistance,Moderate Assistance,1 Person Assistance Devices Stair Climbing Assistive Devices Front Wheel Walker Technique/Endurance Stair Climbing Direction Ascend and Descend Stair Climbing Technique Step to Step Number of Steps Climbed 1 Stair Climbing Set # Repetitions (reps) 1 M5 PT-IP Objective Assessments Start: 07/26/21 11:50 Freq: NEEDED Status: Active Protocol: Document 07/26/21 09:20 AB (Rec: 07/26/21 12:05 AB [email or web address]) Orientation Orientation/Cognition Level of Alertness Alert Orientation Name,Place,Situation Language Function Ability No Deficits Noted Safety Awareness Decreased Safety Awareness Memory Description No Deficits Noted Gross Range of Motion Lower Extremity ROM Impairments R knee flexion: ~ 70 deg PROM R knee extension: ~ 25 deg less to 0 Strength Lower Extremity Strength Assessment Right Impaired Hip 3+/5 Knee 3+/5 Sensation Assessment Sensation Gross Sensation WNL Muscle Tone Muscle Tone WNL Yes M6 PT-IP Treatment Start: 07/26/21 11:50 Freq: NEEDED Status: Active Protocol: Document 07/27/21 10:23 AB (Rec: 07/27/21 12:22 AB [email or web address]) Physical Therapy Treatment Education Education Provided Safety M7 PT-IP Assessment and Plan Start: 07/26/21 11:50 Freq: NEEDED Status: Active Protocol: Document 07/27/21 10:23 (Rec: 07/27/21 12:22 [email or web address]) PT Summary Assessment and Plan Potential Rehabilitation Potential Good Summary Impairments Pain,ROM,Strength,Balance, Coordination,Sensation,Tone, Cognition,Bed Mobility, Transfers,Gait,Activity Tolerance Progress Towards Goals Slow Progress due to Pain Assessment Summary pt c/o more R knee pain today affecting mobility but spouse was still able to safely assist pt. pt plans to go home with spouse to assist and may go home when medically stable. Goals Bed Mobility Goal Independent Transfer Goal Independent,Front Wheeled Walker Gait Goal Independent,Front Wheel Walker Gait Distance 150 Other Goals up/down 1 step using FWW SBA Days to Meet Goals 5 Frequency of Treatment Frequency Of Treatment Twice a Day Treatment Plan Physical Therapy Treatment Plan Bed Mobility Training,Transfer Training,Gait Training, Therapeutic Exercise,Balance Retraining,Post Op Education, Discharge Planning,Hot or Cold Pack,Neuromuscular Re-ed, Coordination Retraining,Manual Therapy Precautions Other Precautions RLE WBAT Recommendations To Nursing Amount of Assist Needed 1 Person Assist Discharge Recommendations PT Discharge Recommendations Home with Assistance, Outpatient PT Transportation Needs at Discharge Private Vehicle
[2021-07-27] MEDS: OXYCODONE IR 10 MG TABLET PO (10:35)
--- NOTE | 2021-07-27 12:04 | PC.NURSE ---
Discharge note: pt going home today. IV discontinued. Oxycodone script sent to [facility]. Called Dr Abdalla office to request nause script be sent over as well. Reviewed discharge instructions with patient and , including signs/symptoms of infection, incision care, follow up, and safety while taking opiod pain meds. Instructed on taking anti nausea med prior to meals and taking pain medication with food. All belongings sent with patient. Taken to car in wheelchair and is driving. All questions answered to patient's and 's satisfaction.
== END 2021-07-27 12:25 | disposition home or self-care (01) ==
LOC: OR 10:52 → AC 10:53
PROVIDERS: Admitting Provider Orthopaedic Surgery; PCP Student in an Organized Health Care Education/Training Program; Referring Provider Orthopaedic Surgery; Visit Provider Orthopaedic Surgery
PROC: 0SRC0JZ Replacement of Right Knee Joint with Synthetic Substitute, Open Approach (ICD-10-PCS; CPT 27447; principal; 2021-07-25 12:15)
DX: M17.11 Unilateral primary osteoarthritis, right knee (principal); E03.9 Hypothyroidism, unspecified; Z85.3 Personal history of malignant neoplasm of breast
CPT/HCPCS: 27447; 36415; 73560; 85014; 85018; 97162; 97530; C1776; G0378; C9290; J0171; J1100; J2250; J2270; J2274; J2405; J2704; J2765; J3010

== ENCOUNTER → 2022-03-27 11:36 | Outpatient (CLI) | payer BC, SELFPAY ==
[2021-07-25 16:58] VITALS: BMI 25.4
== END ==
PROVIDERS: PCP Student in an Organized Health Care Education/Training Program; Referring Provider Student in an Organized Health Care Education/Training Program; Visit Provider Student in an Organized Health Care Education/Training Program
DX: Z78.0 Asymptomatic menopausal state (principal); M85.89 Other specified disorders of bone density and structure, multiple sites; Z85.3 Personal history of malignant neoplasm of breast; Z90.710 Acquired absence of both cervix and uterus
CPT/HCPCS: 77080

== ENCOUNTER → 2022-05-17 11:36 | Outpatient (CLI) | payer BC, SELFPAY ==
[2021-07-25 16:58] VITALS: BMI 25.4
--- NOTE | 2022-05-17 | DI.MG.S_ITS ---
BILATERAL DIGITAL SCREENING MAMMOGRAM 3D/2D WITH CAD: 05/17/2022 CLINICAL: Routine screening. Personal history of left breast cancer. Comparison is made to exams dated: 05/16/2021 mammogram, 04/30/2020 mammogram, 04/08/2019 mammogram, and 03/24/2019 mammogram - [facility]. The tissue of both breasts is heterogeneously dense. This may lower the sensitivity of mammography. Current study was also evaluated with a Computer Aided Detection (CAD) system. There are benign calcifications in both breasts. There also are benign vascular calcifications in both breasts. Additionally, there are benign post operative findings in the left breast. No significant masses, calcifications, or other findings are seen in either breast. There has been no significant interval change. IMPRESSION: BENIGN There is no mammographic evidence of malignancy. A 1 year screening mammogram is recommended. This exam was interpreted at Station ID: [id number]. NOTE: For mammograms, a report in lay terms will be sent to the patient. Approximately 15% of breast malignancies will not be visualized mammographically. In the management of a palpable breast mass, a negative mammogram must not discourage biopsy of a clinically suspicious lesion. Electronically Signed By: Anthony Dowd acr/cynrad:05/17/2022 13:08:53 letter sent: Normal Exam ACR BI-RADS Category 2: Benign Finding(s) 3342F
== END ==
PROVIDERS: PCP Student in an Organized Health Care Education/Training Program; Referring Provider Student in an Organized Health Care Education/Training Program; Visit Provider Student in an Organized Health Care Education/Training Program
DX: Z12.31 Encounter for screening mammogram for malignant neoplasm of breast (principal); Z85.3 Personal history of malignant neoplasm of breast
CPT/HCPCS: 77063; 77067

== ENCOUNTER → 2023-04-16 13:21 | Outpatient (CLI) | payer BC, SELFPAY ==
[2021-07-25 16:58] VITALS: BMI 25.4
[2023-04-16 14:21] LABS: Add Manual Diff / Slide Review NO; Basophils Absolute Auto 100 /uL (0-100); Basophils Percent Auto 1.1 % (0-2); Eosinophils Absolute Auto 100 /uL (0-450); Eosinophils Percent Auto 1.3 % (2-4); Hematocrit 39.3 % (36-46); Hemoglobin 13.4 g/dL (12.0-16.0); Lymphocytes Absolute Auto 1700 /uL (1100-4500); Lymphocytes Percent Auto 30.7 % (25-40); Mean Corpuscular Hemoglobin 31.3 PG (26-34); Mean Corpuscular Volume 92.1 fL (80-100); Monocytes Absolute Auto 500 /uL (0-900); Neutrophils Absolute Auto 3200 /uL (1500-7000); Neutrophils Percent Auto 57.9 % (50-75); Platelet Count 171 X10^3/uL (150-400); Red Blood Cell Count 4.26 X10^6/uL (4.0-5.2); Red Cell Distribution Width 13.9 % (11.6-14.8); White Blood Cell Count 5.5 X10^3/uL (4.5-11.0)
[2023-04-16 14:49] LABS: Alanine Aminotransferase 24 IU/L (<35); Albumin 4.3 g/dL (3.5-5.0); Albumin Globulin Ratio 1.6 (1.0-2.8); Alkaline Phosphatase 138 U/L (38-126); Aspartate Aminotransferase 34 IU/L (14-36); BUN Creatinine Ratio 23.4 (6-22); Bilirubin Total 0.3 mg/dL (0.2-1.3); Blood Urea Nitrogen 15 mg/dL (7-17); Calcium 9.1 mg/dL (8.4-10.2); Carbon Dioxide 26 mmol/L (22-32); Chloride 104 mmol/L (98-107); Estimated Glomerular Filt Rate > 60 mL/min (>60); Globulin 2.7 g/dL (1.7-4.1); Glucose 92 mg/dL (80-110); HEMOLYSIS < 15 (0-50); Potassium 4.5 mmol/L (3.4-5.1); Sodium 137 mmol/L (137-145)
[2023-04-16 15:15] LABS: TSH w/ Reflex to FT4 < 0.02 uIU/mL (0.47-4.68)
[2023-04-16 16:37] LABS: Vitamin D 25 Hydroxy (D3) 74.9 ng/mL (30.0-100.0)
[2023-04-16 23:12] LABS: Free T4, Direct Thyroxine 2.28 ng/dL (0.78-2.19)
== END ==
PROVIDERS: PCP Pediatrics; Referring Provider Pediatrics; Visit Provider Pediatrics
DX: E03.9 Hypothyroidism, unspecified (principal); M85.80 Other specified disorders of bone density and structure, unspecified site
CPT/HCPCS: 36415; 80053; 82306; 84439; 84443; 85025

== ENCOUNTER → 2023-05-23 | Outpatient (CLI) | payer BC, SELFPAY ==
[2021-07-25 16:58] VITALS: BMI 25.4
--- NOTE | 2023-05-23 | DI.MG.S_ITS ---
BILATERAL DIGITAL SCREENING MAMMOGRAM 3D/2D WITH CAD: 05/23/2023 CLINICAL: Routine screening. Personal history of left breast cancer. Comparison is made to exams dated: 05/17/2022 mammogram, 05/16/2021 mammogram, and 04/30/2020 mammogram - [facility]. Both breasts are heterogeneously dense, which may obscure small masses (category c / 51-75% glandular tissue). Current study was also evaluated with a Computer Aided Detection (CAD) system. There are benign calcifications in both breasts. There also are benign vascular calcifications in both breasts. Additionally, there are benign post operative findings in the left breast. No significant masses, calcifications, or other findings are seen in either breast. There has been no significant interval change. IMPRESSION: BENIGN There is no mammographic evidence of malignancy. A 1 year screening mammogram is recommended. This exam was interpreted at Station ID: [id number]. NOTE: For mammograms, a report in lay terms will be sent to the patient. Approximately 15% of breast malignancies will not be visualized mammographically. In the management of a palpable breast mass, a negative mammogram must not discourage biopsy of a clinically suspicious lesion. Electronically Signed By: Debo higgins/sneha:05/23/2023 12:10:19 letter sent: Normal Exam ACR BI-RADS Category 2: Benign Finding(s) 3342F
--- NOTE | 2023-05-23 | DI.RAD.S_ITS ---
PROCEDURE: XR DEXA AXIAL SKELETON INDICATIONS: Osteopenia COMPARISON: [facility], CR, XR DEXA AXIAL SKELETON, 03/27/2022, 11:49. [facility], CR, XR DEXA AXIAL SKELETON, 05/12/2019, 13:39. FINDINGS: This blank DEXA report has been sent in error by the PACS system. The correct and complete report will be forthcoming in 1-2 days. Thank you for your patience and understanding. Dictated by: Eddie Mancini M.D. on 05/23/2023 at 18:09 Approved by: Eddie Mancini M.D. on 05/23/2023 at 18:09
--- NOTE | 2023-05-23 11:24 | DI.DEXA.S_ITS ---
Bone Density Report Name: ORLANDO KOLB Age: 82 Sex: Female Ethnicity: White Date of : 1940 Indication: osteopenia; Referring Provider: CHRISTIANO VALERIO Study: Bone densitometry was performed. Exam Date: May 23, 2023 Accession number: [id number] Bone Density: Region BMD T-score Z-score Classification AP Spine(L1, L2) 0.971 -0.1 2.6 Normal Femoral Neck (Left) 0.671 -1.6 0.9 Osteopenia Total Hip (Left) 0.767 -1.4 0.8 Osteopenia Femoral Neck (Right) 0.702 -1.3 1.1 Osteopenia Total Hip (Right) 0.769 -1.4 0.8 Osteopenia Total Hip Mean 0.768 -1.4 0.8 Osteopenia World Health Organization criteria for BMD impression classify patients as: Normal (T-score at or above -1.0), Osteopenia (T-score between -1.0 and -2.5), or Osteoporosis (T-score at or below -2.5). 10-year Fracture Risk(1): Major Osteoporotic Fracture 14% Hip Fracture 3.9% Reported Risk Factors: [place] (), Neck BMD=0.671, BMI=24.6 (1) FRAX(R) Version 3.08. Fracture probability calculated for an untreated patient. Fracture probability may be lower if the patient has received treatment. Previous Exams: -- Region Exam Age BMD T-score BMD Change BMD Change Date g/cm2 vs Baseline vs Previous -- AP Spine (L1-L2) 05/23/2023 82 0.971 -0.1 0.046 (5.0%)# 0.046 (5.0%)# 03/27/2022 81 0.926 -0.5 Total Hip(Left) 05/23/2023 82 0.767 -1.4 0.000 (0.0%)# 0.000 (0.0%)# 03/27/2022 81 0.767 -1.4 Total Hip(Right) 05/23/2023 82 0.769 -1.4 -0.002 (-0.3%)# -0.002 (-0.3%)# 03/27/2022 81 0.772 -1.4 -- *Denotes significance at 95% confidence level, LSC for AP Spine = 0.022 g/cm2, LSC for Total Hip = 0.027 g/cm2 # Denotes dissimilar scan types or analysis methods Impression: The patient has low bone mass, based on the Left Femoral Neck T-score. The patient has an estimated ten-year risk of hip fracture of 3.9% and an estimated ten-year risk of major fracture of 14%, based on the WHO FRAX algorithm. No significant bone loss was observed. Discussion: BONE DENSITY IS LOW AT ONE OR MORE SKELETAL SITES. THE PATIENT'S BMD AND CLINICAL RISK FACTORS CONTRIBUTE TO THIS PATIENT'S INCREASED RISK OF FRACTURE. This patient's lowest T-score is low at one or more skeletal sites. It meets the World Health Organization's (WHO) criteria for ?low bone mass? (T-score between -1.0 and -2.5). The patient's 10-year risk of hip fracture as calculated by FRAX exceeds the threshold where pharmacological therapy is recommended by the National Osteoporosis Foundation (NOF). However, all treatment decisions require clinical judgment and consideration of individual patient factors, including patient preferences, comorbidities, previous drug use, risk factors not captured in the FRAX model (e.g., frailty, falls, vitamin D deficiency, increased bone turnover, interval significant decline in bone density) and possible under or overestimation of fracture risk by FRAX. The patient should follow a healthful lifestyle (good nutrition with adequate calcium and vitamin D, and appropriate weight-bearing exercise). Follow-Up: Consider a repeat BMD and Vertebral Fracture Assessment (VFA) exam in 2 years or sooner if medically necessary, to reassess this patient's status. Reported by: BREANNA DO M.D. on 05/23/2023 11:42:00 AM.A
== END ==
LOC: MAMMO 10:48
PROVIDERS: PCP Pediatrics; Referring Provider Pediatrics; Visit Provider Pediatrics
DX: Z12.31 Encounter for screening mammogram for malignant neoplasm of breast (principal); Z85.3 Personal history of malignant neoplasm of breast; M85.852 Other specified disorders of bone density and structure, left thigh; Z78.0 Asymptomatic menopausal state; Z90.710 Acquired absence of both cervix and uterus
CPT/HCPCS: 77063; 77067; 77080

== ENCOUNTER → 2023-07-12 10:46 | Outpatient (CLI) | payer BC, SELFPAY ==
[2021-07-25 16:58] VITALS: BMI 25.4
[2023-07-12 12:59] LABS: Free T3, Triiodothyronine Free 3.91 pg/mL (2.77-5.27); Free T4, Direct Thyroxine 1.61 ng/dL (0.78-2.19)
[2023-07-12 13:13] LABS: Thyroid Stimulating Hormone 0.761 uIU/mL (0.47-4.68)
== END ==
PROVIDERS: PCP Pediatrics; Referring Provider Pediatrics; Visit Provider Pediatrics
DX: E03.9 Hypothyroidism, unspecified (principal)
CPT/HCPCS: 36415; 84439; 84443; 84481

== ENCOUNTER → 2023-11-12 14:32 | Outpatient (CLI) | payer BC, SELFPAY ==
[2021-07-25 16:58] VITALS: BMI 25.4
[2023-11-12 16:21] LABS: BUN Creatinine Ratio 33.8 (6-22); Blood Urea Nitrogen 22 mg/dL (7-17); Calcium 9.6 mg/dL (8.4-10.2); Carbon Dioxide 28 mmol/L (22-32); Chloride 102 mmol/L (98-107); Cholesterol 219 mg/dL (140-199); Estimated Glomerular Filt Rate > 60 mL/min (>60); Glucose 93 mg/dL (80-110); HDL Cholesterol 93 mg/dL (40-60); HEMOLYSIS 24 (0-50); LDL Cholesterol Calculated 101 mg/dL (<100); Sodium 139 mmol/L (137-145); Triglycerides 123 mg/dL (35-150)
[2023-11-12 16:52] LABS: TSH w/ Reflex to FT4 0.54 uIU/mL (0.47-4.68)
== END ==
PROVIDERS: PCP Internal Medicine; Referring Provider Internal Medicine; Visit Provider Internal Medicine
DX: E03.9 Hypothyroidism, unspecified (principal); Z85.3 Personal history of malignant neoplasm of breast
CPT/HCPCS: 36415; 80048; 80061; 84443

== ENCOUNTER → 2024-06-09 11:33 | Outpatient (CLI) | payer BC, SELFPAY ==
[2021-07-25 16:58] VITALS: BMI 25.4
--- NOTE | 2024-06-09 11:34 | DI.MG.S_ITS ---
BILATERAL DIGITAL SCREENING MAMMOGRAM 3D/2D WITH CAD POST LUMPECTOMY: 06/09/2024 CLINICAL: Routine screening. Personal history of left breast cancer. Comparison is made to exams dated: 05/23/2023 mammogram, 05/17/2022 mammogram, and 05/16/2021 mammogram - [facility]. Both breasts are heterogeneously dense, which may obscure small masses (category c / 51-75% glandular tissue). Current study was also evaluated with a Computer Aided Detection (CAD) system. There are benign calcifications in both breasts. There also are benign vascular calcifications in both breasts. Additionally, there are benign post operative findings in the left breast. No significant masses, calcifications, or other findings are seen in either breast. There has been no significant interval change. IMPRESSION: BENIGN There is no mammographic evidence of malignancy. A 1 year screening mammogram is recommended. This exam was interpreted at Station ID: [id number]. NOTE: For mammograms, a report in lay terms will be sent to the patient. Approximately 15% of breast malignancies will not be visualized mammographically. In the management of a palpable breast mass, a negative mammogram must not discourage biopsy of a clinically suspicious lesion. Electronically Signed By: Willard uribe/sneha:06/09/2024 14:51:17 letter sent: Normal Exam ACR BI-RADS Category 2: Benign Finding(s) 3342F
== END ==
PROVIDERS: PCP Internal Medicine; Referring Provider Internal Medicine; Visit Provider Internal Medicine
DX: Z12.31 Encounter for screening mammogram for malignant neoplasm of breast (principal); Z85.3 Personal history of malignant neoplasm of breast; R92.333 Mammographic heterogeneous density, bilateral breasts
CPT/HCPCS: 77063; 77067

== ENCOUNTER → 2024-12-15 10:55 | Outpatient (CLI) | payer BC, SELFPAY ==
[2021-07-25 16:58] VITALS: BMI 25.4
[2024-12-15 11:59] LABS: Aspartate Aminotransferase 44 IU/L (14-36); BUN Creatinine Ratio 19.2 (6-22); Blood Urea Nitrogen 14 mg/dL (7-17); Calcium 9.6 mg/dL (8.4-10.2); Carbon Dioxide 31 mmol/L (22-32); Chloride 102 mmol/L (98-107); Cholesterol 195 mg/dL (140-199); Estimated Glomerular Filt Rate > 60 mL/min (>60); Glucose 101 mg/dL (80-110); HDL Cholesterol 77 mg/dL (40-60); HEMOLYSIS < 15 (0-50); LDL Cholesterol Calculated 106 mg/dL (<100); Potassium 4.3 mmol/L (3.4-5.1); Sodium 138 mmol/L (137-145); Triglycerides 59 mg/dL (35-150)
[2024-12-15 12:26] LABS: TSH w/ Reflex to FT4 0.63 uIU/mL (0.47-4.68)
== END ==
PROVIDERS: PCP Internal Medicine; Referring Provider Internal Medicine; Visit Provider Internal Medicine
DX: E03.9 Hypothyroidism, unspecified (principal); E78.2 Mixed hyperlipidemia; Z86.39 Personal history of other endocrine, nutritional and metabolic disease
CPT/HCPCS: 36415; 80048; 80061; 84443; 84450